=== PATIENT | male | born 1955 | race Caucasian/White ===

== ENCOUNTER 2019-04-29 12:40 | Emergency (ER) | payer MEDICARE ==
[~2019-04-29] VITALS: Ht 175.3 cm; Wt 97.1 kg
[2019-04-29] MEDS ORDERED: SODIUM CHLORIDE FLUSH 10ML SYR IVF ONE (13:30)
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
[2019-04-29 13:45] LABS: BASOPHILS # (AUTO) 0.05 x10^3/uL (0-0.1); BASOPHILS % (AUTO) 1 % (0-1); EOSINOPHILS # (AUTO) 0.32 x10^3/uL (0-0.4); EOSINOPHILS % (AUTO) 4 % (1-7); LYMPHOCYTES # (AUTO) 2.26 x10^3/uL (1-3.4); LYMPHOCYTES % (AUTO) 26 % (22-44); MD NO; MEAN CORPUSCULAR HEMOGLOBIN 30.2 pg (27.5-34.5); MEAN CORPUSCULAR HGB CONC 32.6 g/dL (33.2-36.2); MEAN CORPUSCULAR VOLUME 92.7 fL (81-97); MEAN PLATELET VOLUME 8.1 fL (7.4-10.4); MONOCYTES # (AUTO) 1.09 x10^3/uL (0.2-0.8); MONOCYTES % (AUTO) 12 % (2-9); NEUTROPHILS # (AUTO) 5.07 x10^3/uL (1.8-6.8); NEUTROPHILS % (AUTO) 58 % (42-75); PLATELET COUNT 271 x10^3/uL (130-400); RED BLOOD COUNT 4.79 x10^6/uL (4.38-5.82); RED CELL DISTRIBUTION WIDTH 15.4 % (9.4-14.8)
[2019-04-29 13:49] LABS: ALBUMIN 3.3 g/dL (3.4-5.0); ANION GAP 4 mmol/L (5-15); CALCIUM 9.2 mg/dL (8.5-10.1); CHLORIDE 111 mmol/L (98-107); CREATININE 0.95 mg/dL (0.7-1.3)
--- NOTE | 2019-04-29 13:58 | NUR ---
ATTEMPTED TO COLLECT UA FROM PT, PT STATES HE JUST USED THE BATHROOM AND DOESNT PLAN ON URINATING AGAIN WHILE HERE. PT GIVEN URINAL, REQUESTING TO VOID EXPLAINED WHY WE NEEDED URINE SAMPLE.
--- NOTE | 2019-04-29 14:34 | NUR ---
PT TO CT AT THIS TIME
[2019-04-29] MEDS ORDERED: OMNIPAQUE 350 MG/ML, 100ML BOTTLE ONE (14:52)
[2019-04-29 14:55] VITALS: BP 144/85
--- NOTE | 2019-04-29 14:55 | NUR ---
PT BACK FROM IMAGING, SECOND ATTEMPT TO OBTAIN URINE SAMPLE. PT AMBULATED TO BR WITH STEADY GAIT. SAMPLE OBTAINED AND SENT TO LAB
[2019-04-29 15:20] LABS: MICROSCOPIC AUTO
[2019-04-29 15:21] LABS: CULTURE INDICATED? NO
== END 2019-04-29 16:24 | disposition home or self-care (01) ==
LOC: ED 16:10
DX: L03.314 Cellulitis of groin (principal)
CPT/HCPCS: 36415; 74177; 80048; 81001; 82040; 83605; 85025; 99285; Q9967